=== PATIENT | male | born 1990 | race Caucasian/White ===

== ENCOUNTER 2021-06-02 20:14 | Emergency (ER) | payer OTHER ==
[2021-06-02] MEDS ORDERED: MOTRIN600 MG PO (21:38)
[2021-06-02] MEDS ORDERED: AMOX TR-K CLV1 EAC4 PO (21:38)
== END 2021-06-02 21:50 | disposition home or self-care (01) ==
LOC: FER 20:14
DX: K04.7 Periapical abscess without sinus (principal); F17.290 Nicotine dependence, other tobacco product, uncomplicated; Z28.310 Unvaccinated for COVID-19
CPT/HCPCS: 99282